=== PATIENT | female | born 1940 | race Caucasian/White ===

== ENCOUNTER 2018-06-22 09:00 | Day surgery (SDC) | payer MEDICARE, BC ==
[2018-06-21 11:44] LABS: BASOPHILS % (AUTO) 0.3 % (0-1); EOSINOPHILS # (AUTO) 0.2 X10'3 (0-0.9); EOSINOPHILS % (AUTO) 3.2 % (0-6); HEMATOCRIT 40.8 % (35.0-45.0); HEMOGLOBIN 13.6 g/dl (12.0-16.0); LYMPHOCYTES # (AUTO) 1.3 X10'3 (1.1-4.8); MEAN CORPUSCULAR HEMOGLOBIN 30.5 PG (27.0-31.0); MEAN CORPUSCULAR HGB CONC 33.2 g/dL (33.0-36.5); MEAN CORPUSCULAR VOLUME 91.8 FL (78-98); MEAN PLATELET VOLUME 8.8 FL (7.4-10.4); MONOCYTES # (AUTO) 0.4 X10'3 (0-0.9); MONOCYTES % (AUTO) 4.8 % (2-12); NEUTROPHILS # (AUTO) 5.5 X10'3 (1.8-7.7); NEUTROPHILS % (AUTO) 73.7 % (42-75); PLATELET COUNT 221 X10'3 (140-440); RED BLOOD COUNT 4.45 X10'6 (4.20-5.60); WHITE BLOOD COUNT 7.5 X10'3 (4.5-11.0)
[2018-06-21 11:52] LABS: ALBUMIN 3.3 G/DL (3.4-5.0); ANION GAP 4 (8-16); BLOOD UREA NITROGEN 25 MG/DL (7-18); CALCIUM 9.2 MG/DL (8.5-10.1); CHLORIDE 106 MMOL/L (99-107); CREATININE 1.04 MG/DL (0.40-0.90); GLUCOSE 110 MG/DL (70-104); POTASSIUM 3.9 MMOL/L (3.5-5.1); SODIUM 141 MMOL/L (135-145); TOTAL CARBON DIOXIDE 30.7 MMOL/L (24-32); eGFR 51 ML/MIN
[2018-06-21 11:56] LABS: INR 0.9 INR; PARTIAL THROMBOPLASTIN TIME 28 SECONDS (22-32)
[~2018-06-22] VITALS: Ht 162.6 cm; Wt 101.2 kg
[2018-06-22] VITALS (11 sets, daily range): BP systolic 121–161; BP diastolic 61–80
[2018-06-22] MEDS ORDERED: diphenhydrAMINE 25mg capsule PO PRN (09:30)
[2018-06-22] MEDS ORDERED: normal saline 1,000 ML IV SCH (09:30)
[2018-06-22] MEDS ORDERED: LORazepam 0.5 MG tablet PO PRN (09:30)
[2018-06-22] MEDS ORDERED: LEVO50TA PO (10:02)
[2018-06-22] MEDS ORDERED: EST1T PO (10:02)
[2018-06-22] MEDS ORDERED: FURO-150 PO (10:02)
[2018-06-22] MEDS ORDERED: CHOL10002 PO (10:02)
[2018-06-22] MEDS ORDERED: METO-395 PO (10:02)
[2018-06-22] MEDS ORDERED: PRED10TA23 PO (10:02)
[2018-06-22] MEDS ORDERED: POTA10TA19 PO (10:02)
[2018-06-22] MEDS ORDERED: RANI150C4 PO (10:02)
[2018-06-22] MEDS ORDERED: DIPH25CA83 PO (10:02)
[2018-06-22] MEDS ORDERED: LIDOcaine/PRILOcaine 5gm cream TP ONE (10:25)
[2018-06-22] MEDS ORDERED: nitroGLYCERIN-Tridil 50MG/D5W 250 ML IV ONE (10:49)
[2018-06-22] MEDS ORDERED: fentaNYL/PF 50MCG/1 ML 2ML syringe ONE (10:49)
[2018-06-22] MEDS ORDERED: verapamil 2.5 mg/ml inj IV ONE (10:49)
[2018-06-22] MEDS ORDERED: LIDOcaine 1% (10mg/ml)w/preservative injection 20ml MDV ONE (10:50)
[2018-06-22] MEDS ORDERED: iohexol 350 MG/ML 50ML vial IV ONE (10:50)
[2018-06-22] MEDS ORDERED: midazolam 2 mg/2 ml injection ONE (10:50)
[2018-06-22] MEDS ORDERED: heparin 1,000unit/ml 10ml vial 10 ML ONE (10:50)
[2018-06-22] MEDS ORDERED: iohexol 350MG/ML 100ml bottle IV ONE (10:50)
[2018-06-22] MEDS ORDERED: normal saline 1000ml 1,000 ML IV ONE (12:25)
== END 2018-06-22 17:00 | disposition home or self-care (01) ==
LOC: SSTAY O 09:00
PROVIDERS: ATTEND Internal Medicine Cardiovascular Disease
DX: I25.118 Atherosclerotic heart disease of native coronary artery with other forms of angina pectoris (principal); I10 Essential (primary) hypertension; E78.5 Hyperlipidemia, unspecified; G47.33 Obstructive sleep apnea (adult) (pediatric); E11.9 Type 2 diabetes mellitus without complications; Z90.710 Acquired absence of both cervix and uterus; Z98.890 Other specified postprocedural states; Z82.49 Family history of ischemic heart disease and other diseases of the circulatory system; Z79.899 Other long term (current) drug therapy
CPT/HCPCS: 36415; 80048; 85025; 85610; 85730; 93005; 93458; 99152; A6257; J1644; J2001; J2250; J3010; J7030; Q0163; Q9967; A4620; C1769; J3490

== ENCOUNTER 2021-12-03 08:17 | Day surgery (SDC) | payer MEDICARE, BC ==
[~2021-12-03] VITALS: Ht 162.6 cm; Wt 96.8 kg
[2021-12-03] VITALS (21 sets, daily range): BP systolic 105–146; BP diastolic 49–86
[~2021-12-03 08:17] MED LIST: CHOL10002 PO; DIPH25CA83 PO; EST1T PO; FURO-150 PO; LEVO50TA PO; METO-395 PO; POTA-192 PO; PRED10TA23 PO; RANI150C4 PO
[2021-12-03] MEDS ORDERED: FLEC50TA PO (08:48)
[2021-12-03] MEDS ORDERED: APIX5TAB3 PO (08:49)
[2021-12-03] MEDS ORDERED: METO-395 PO (08:50)
[2021-12-03] MEDS ORDERED: amiodarone 150mg/dext, iso-os 100 ML IV ONE (09:00)
[2021-12-03] MEDS ORDERED: morphine 10mg/ml inj. IV ONE (09:00)
[2021-12-03] MEDS ORDERED: MIDAZolam 1mg/ml 10ml vial IV ONE (09:00)
[2021-12-03] MEDS ORDERED: LORazepam 0.5 MG tablet PO ONE (09:00)
[2021-12-03] MEDS ORDERED: atropine 0.1mg/ml 10ml syringe IV ONE (09:00)
[2021-12-03] MEDS ORDERED: diphenhydrAMINE 25mg capsule PO ONE (09:00)
[2021-12-03 09:21] LABS: BASOPHILS # (AUTO) 0.1 X10'3 (0-0.2); BASOPHILS % (AUTO) 0.8 % (0-1); EOSINOPHILS # (AUTO) 0.1 X10'3 (0-0.9); EOSINOPHILS % (AUTO) 1.9 % (0-6); HEMATOCRIT 48.4 % (35.0-45.0); HEMOGLOBIN 15.7 g/dl (12.0-16.0); LYMPHOCYTES # (AUTO) 1.8 X10'3 (1.1-4.8); LYMPHOCYTES % (AUTO) 25.1 % (21-51); MEAN CORPUSCULAR HEMOGLOBIN 30.3 PG (27.0-31.0); MEAN CORPUSCULAR HGB CONC 32.4 g/dL (33.0-36.5); MEAN CORPUSCULAR VOLUME 93.4 FL (78-98); MEAN PLATELET VOLUME 8.6 FL (7.4-10.4); MONOCYTES # (AUTO) 0.6 X10'3 (0-0.9); MONOCYTES % (AUTO) 8.8 % (2-12); NEUTROPHILS # (AUTO) 4.5 X10'3 (1.8-7.7); NEUTROPHILS % (AUTO) 63.4 % (42-75); PLATELET COUNT 208 X10'3 (140-440); RED BLOOD COUNT 5.18 X10'6 (4.20-5.60); RED CELL DISTRIBUTION WIDTH 14.7 % (11.5-14.5); WHITE BLOOD COUNT 7.1 X10'3 (4.5-11.0)
[2021-12-03 09:40] LABS: ALBUMIN 3.9 G/DL (3.4-5.0); ANION GAP 7 (8-16); BLOOD UREA NITROGEN 22 MG/DL (7-18); BUN/CREATININE RATIO 18.8 (6.6-38.0); CALCIUM 9.5 MG/DL (8.5-10.1); CHLORIDE 104 MMOL/L (99-107); CREATININE 1.17 MG/DL (0.40-0.90); GLUCOSE 103 MG/DL (70-104); POTASSIUM 3.6 MMOL/L (3.5-5.1); SODIUM 141 MMOL/L (135-145); TOTAL CARBON DIOXIDE 30.1 MMOL/L (24-32); eGFR 44 ML/MIN
== END 2021-12-03 15:20 | disposition home or self-care (01) ==
LOC: SSTAY O 08:17
PROVIDERS: ATTEND Internal Medicine Cardiovascular Disease
DX: I48.19 Other persistent atrial fibrillation (principal); I10 Essential (primary) hypertension; E11.9 Type 2 diabetes mellitus without complications
CPT/HCPCS: 36415; 80048; 85025; 92960; 93005; J0282; J2250; J2274; J7030; A4620

== ENCOUNTER 2021-12-15 12:28 | Outpatient (CLI) | payer MEDICARE, BC ==
[~2021-12-15 12:28] MED LIST changes: +APIX5TAB3 PO; +FLEC50TA PO; -PRED10TA23 PO; -RANI150C4 PO
== END 2021-12-15 23:59 | disposition home or self-care (01) ==
LOC: CARD DIAG 12:28
PROVIDERS: ATTEND Internal Medicine Cardiovascular Disease
DX: I08.8 Other rheumatic multiple valve diseases (principal); I25.10 Atherosclerotic heart disease of native coronary artery without angina pectoris
CPT/HCPCS: 93306

== ENCOUNTER 2022-01-14 14:18 | Outpatient (CLI) | payer MEDICARE, BC ==
[~2022-01-14] VITALS: Ht 160 cm; Wt 98.4 kg
[2022-01-14 14:44] LABS: TOTAL HEMOGLOBIN 13.2 G/dl (12.0-16.0)
[2022-01-14] MEDS ORDERED: albuterol 2.5 MG/3 ML nebule NEB PRN (15:20)
== END 2022-01-14 23:59 | disposition home or self-care (01) ==
LOC: RT 14:18
PROVIDERS: ATTEND Internal Medicine Cardiovascular Disease
DX: R94.2 Abnormal results of pulmonary function studies (principal); R06.02 Shortness of breath; I48.91 Unspecified atrial fibrillation; Z79.899 Other long term (current) drug therapy
CPT/HCPCS: 85018; 94060; 94727; 94729; 94760